=== PATIENT | female | born 1960 | race African-American/Black ===

== ENCOUNTER 2019-12-19 15:41 | Inpatient (IN) | payer MEDICARE, MEDICAID ==
[~2019-12-19] VITALS: Ht 175.3 cm; Wt 77.0 kg
[2019-12-19] MEDS ORDERED: HYDROCODONE/ACETAMINOPHEN 5/325MG TABLET PO STA (18:15)
[2019-12-19] MEDS ORDERED: IBUPROFEN 600MG TABLET PO STA (18:22)
[2019-12-19 21:04] LABS: BASOPHILS % 0.3 % (0.0-2.0); CHLORIDE 110 mEq/L (98-107); EOSINOPHILS % 0.3 % (0.0-5.0); HEMATOCRIT. 34.5 % (36.0-48.0); HEMOGLOBIN. 11.6 g/dL (12.0-16.0); LYMPHOCYTES % 19.3 % (20.0-50.0); MEAN CORPUSCULAR HEMOGLOBIN 28.1 pg (28.0-32.0); MEAN CORPUSCULAR VOLUME 83.3 fL (81.0-99.0); MEAN PLATELET VOLUME 7.6 fl (7.4-10.4); MONOCYTES % 6.2 % (2.0-8.0); NEUTROPHILS % 73.9 % (40.0-76.0); PLATELET 257 x1000/uL (130-400); RED BLOOD CELL COUNT 4.14 mill/uL (4.2-5.4); RED CELL DISTRIBUTION WIDTH 14.2 % (11.6-14.6)
[2019-12-19] MEDS ORDERED: LISI-604 MT (23:36)
[2019-12-19] MEDS ORDERED: ATOR40TA70 MT (23:37)
[2019-12-20] VITALS: BP 137/84
[2019-12-20] MEDS ORDERED: ONDANSETRON HCL 4MG/2ML INJ IV PRN (01:15)
[2019-12-20] MEDS ORDERED: MORPHINE SULFATE 2 MG/ML CPJ (NOT FOR IM USE) IV PRN (01:15)
[2019-12-20] MEDS ORDERED: DEXTROSE 50% WATER 50ML SYRINGE IV PRN (01:15)
[2019-12-20 04:00] VITALS: BP 132/74
[2019-12-20] MEDS: IBUPROFEN 600MG TABLET PO PRN (04:36)
[2019-12-20] MEDS: BLOOD SUGAR DIAGNOSTIC STRIP TEST SCH ×4 (06:25→20:31)
[2019-12-20 08:00] VITALS: BP 124/69
[2019-12-20] MEDS ORDERED: PNEUMOCOCCAL 23-VAL P-SAC VAC 0.5 ML IM ONE (08:00)
[2019-12-20] MEDS: LISINOPRIL 20MG TABLET PO SCH (09:57)
[2019-12-20] MEDS ORDERED: INFLUENZA VIRUS VACCINE(AFLURIA) 0.5ML SYR IM ONE (10:00)
[2019-12-20] MEDS: INSULIN LISPRO 100 UNITS/ML SUBCUT SCH ×4 (10:12→20:34)
[2019-12-20 12:00] VITALS: BP 133/73
[2019-12-20 16:00] VITALS: BP 126/72
[2019-12-20 20:00] VITALS: BP 144/74
[2019-12-20] MEDS: ATORVASTATIN CALCIUM 40MG TABLET PO SCH (20:31)
[2019-12-21] VITALS: BP 102/57
[2019-12-21 04:00] VITALS: BP 114/62
[2019-12-21] MEDS: INSULIN LISPRO 100 UNITS/ML SUBCUT SCH ×4 (07:50→20:43)
[2019-12-21] MEDS: BLOOD SUGAR DIAGNOSTIC STRIP TEST SCH ×4 (07:54→20:43)
[2019-12-21 08:00] VITALS: BP 127/68
[2019-12-21] MEDS: LISINOPRIL 20MG TABLET PO SCH (09:02)
[2019-12-21] MEDS: IBUPROFEN 600MG TABLET PO PRN ×2 (09:03→16:30)
[2019-12-21 12:00] VITALS: BP 128/59
[2019-12-21 13:28] LABS: BASOPHILS % 0.4 % (0.0-2.0); EOSINOPHILS % 0.8 % (0.0-5.0); HEMATOCRIT. 31.1 % (36.0-48.0); HEMOGLOBIN. 10.5 g/dL (12.0-16.0); LYMPHOCYTES % 17.2 % (20.0-50.0); MEAN CORPUSCULAR VOLUME 83.3 fL (81.0-99.0); MEAN PLATELET VOLUME 7.6 fl (7.4-10.4); MONOCYTES % 9.1 % (2.0-8.0); NEUTROPHILS % 72.5 % (40.0-76.0); PLATELET 188 x1000/uL (130-400); RED BLOOD CELL COUNT 3.74 mill/uL (4.2-5.4); RED CELL DISTRIBUTION WIDTH 14.4 % (11.6-14.6)
[2019-12-21 13:46] LABS: CHLORIDE 108 mEq/L (98-107)
[2019-12-21 16:00] VITALS: BP 107/55
[2019-12-21 20:00] VITALS: BP 113/75
[2019-12-21] MEDS: ATORVASTATIN CALCIUM 40MG TABLET PO SCH (20:36)
[2019-12-22] VITALS: BP 106/56
[2019-12-22 04:00] VITALS: BP 110/63
[2019-12-22] MEDS: BLOOD SUGAR DIAGNOSTIC STRIP TEST SCH ×5 (06:32→21:42)
[2019-12-22] MEDS: INSULIN LISPRO 100 UNITS/ML SUBCUT SCH ×4 (07:50→21:42)
[2019-12-22 08:00] VITALS: BP 132/73
[2019-12-22] MEDS: LISINOPRIL 20MG TABLET PO SCH (09:07)
[2019-12-22 12:00] VITALS: BP 137/73
[2019-12-22 16:00] VITALS: BP 129/80
[2019-12-22 20:00] VITALS: BP 138/67
[2019-12-22] MEDS: ATORVASTATIN CALCIUM 40MG TABLET PO SCH (21:35)
[2019-12-23] VITALS: BP 133/72
[2019-12-23 04:00] VITALS: BP 104/66
[2019-12-23 08:00] VITALS: BP 111/58
[2019-12-23] MEDS: LISINOPRIL 20MG TABLET PO SCH (08:39)
[2019-12-23] MEDS: INSULIN LISPRO 100 UNITS/ML SUBCUT SCH ×4 (08:42→21:38)
[2019-12-23] MEDS: IBUPROFEN 600MG TABLET PO PRN (08:43)
[2019-12-23 12:00] VITALS: BP 127/71
[2019-12-23] MEDS: BLOOD SUGAR DIAGNOSTIC STRIP TEST SCH ×3 (12:49→21:33)
[2019-12-23 16:00] VITALS: BP 122/69
[2019-12-23 20:00] VITALS: BP 127/67
[2019-12-23] MEDS: ATORVASTATIN CALCIUM 40MG TABLET PO SCH (21:26)
[2019-12-24] VITALS (7 sets, daily range): BP systolic 106–141; BP diastolic 56–95
[2019-12-24] MEDS: BLOOD SUGAR DIAGNOSTIC STRIP TEST SCH ×4 (06:43→20:38)
[2019-12-24] MEDS: INSULIN LISPRO 100 UNITS/ML SUBCUT SCH ×4 (06:48→20:41)
[2019-12-24] MEDS: LISINOPRIL 20MG TABLET PO SCH (08:22)
[2019-12-24] MEDS ORDERED: INSLIS SUBCUT (16:53)
[2019-12-24] MEDS: ATORVASTATIN CALCIUM 40MG TABLET PO SCH (20:34)
== END 2019-12-24 21:51 | disposition home or self-care (01) | DRG 563 ==
LOC: ER 15:41 → ENRESERV 22:54 → 6EST 23:51
PROVIDERS: ADMIT Family Medicine; ATTEND Family Medicine
DX: S92.002A Unspecified fracture of left calcaneus, initial encounter for closed fracture (principal); I10 Essential (primary) hypertension; E78.5 Hyperlipidemia, unspecified; E78.00 Pure hypercholesterolemia, unspecified; W17.89XA Other fall from one level to another, initial encounter; E11.42 Type 2 diabetes mellitus with diabetic polyneuropathy; Z98.49 Cataract extraction status, unspecified eye; W18.39XA Other fall on same level, initial encounter; Y93.89 Activity, other specified; Y92.89 Other specified places as the place of occurrence of the external cause; Y99.8 Other external cause status
CPT/HCPCS: 36415; 72128; 72131; 73610; 73630; 73700; 80053; 82962; 83036; 85025; 90686; 90732; 93005; 97162; 97530; 99285; J1815